=== PATIENT | female | born 2000 | race Hispanic/Latino ===

== ENCOUNTER 2023-06-03 11:32 | Inpatient (IN) | payer MEDICAID, OTHER ==
[2023-06-02 13:21] LABS: Hematocrit 36.6 % (34.9-44.5); Hemoglobin 12.6 g/dL (12.0-15.5); Platelet Count 155 10x3/uL (150-450)
[2023-06-02 15:45] LABS: HBSAg Index 0.25 S/CO (0-0.99); HIV (1/2) Antibody/Antigen Non-Reactive (NonReactive); HIV 1/2 INDEX 0.12 S/CO (<1.00); Hep B Surf Ag Non-Reactive S/CO (NonReactive)
[2023-06-02 15:48] LABS: Syphilis Antibody Nonreactive (Nonreactive); Syphilis Antibody Index 0.04 S/CO (<1.00 Non-Reactive)
[2023-06-03] MEDS: Lactated Ringer's 1,000 ML IV SCH (12:00)
[2023-06-03 12:47] VITALS: BMI 25.0
[2023-06-03] MEDS ORDERED: Methylergonovine 0.2 MG/ML VIAL IM PRN (12:57)
[2023-06-03] MEDS ORDERED: Diphenoxylate HCl/Atropine Tablet PO PRN (12:57)
[2023-06-03] MEDS ORDERED: Carboprost 250 MCG/ML AMP IM PRN (12:57)
[2023-06-03] MEDS ORDERED: Misoprostol 200 MCG TAB PR PRN (12:57)
[2023-06-03] MEDS ORDERED: Oxytocin 30 units/NS 500 ML 500 ML IV SCH (12:57)
[2023-06-03] MEDS ORDERED: Tranexamic Acid 1,000 MG/10 ML VIAL IVP PRN (12:57)
[2023-06-03] MEDS ORDERED: Bicitra 30 ML UDCUP PO PRN (12:57)
[2023-06-03] MEDS ORDERED: hydrALAZINE 20 MG/ML VIAL SLOW IVP PRN ×2 (12:57→16:11)
[2023-06-03] MEDS ORDERED: Ondansetron PF 4 MG/2 ML Vial IVP PRN ×3 (12:57→13:10)
[2023-06-03] MEDS ORDERED: Promethazine HCl 25 MG/ML VIAL IM PRN ×3 (12:57→16:11)
[2023-06-03] MEDS ORDERED: Promethazine HCl 25 MG SUPP PR PRN (13:10)
[2023-06-03] MEDS ORDERED: Meperidine HCl/PF 25 MG (1 mL) VIAL SLOW IVP PRN (13:10)
[2023-06-03] MEDS ORDERED: Moisturizing Cream (Eucerin) 113 GM JAR TOP PRN (13:10)
[2023-06-03] MEDS ORDERED: Ketorolac Tromethamine 30 MG (1 mL) VIAL IVP PRN (13:10)
[2023-06-03] MEDS ORDERED: diphenhydrAMINE 50 MG/ML VIAL IVP PRN (13:10)
[2023-06-03] MEDS ORDERED: fentaNYL 50 mcg/mL 1 mL Vial SLOW IVP PRN (13:10)
[2023-06-03] MEDS ORDERED: Naloxone HCl 0.4 mg/ml Vial IV PRN (13:10)
[2023-06-03] MEDS ORDERED: Naloxone HCl 0.4 mg/ml Vial IVP PRN ×2 (13:10)
[2023-06-03] MEDS: Famotidine/PF 20 mg/2ml Vial SLOW IVP PRN (13:13)
[2023-06-03] MEDS ORDERED: Ketorolac Tromethamine 30 MG (1 mL) VIAL IVP SCH (13:15)
[2023-06-03] MEDS ORDERED: Communication Order-Pharmacy FS SCH (13:15)
[2023-06-03] MEDS: CEFAZOLIN 2 GM VIAL ONE (13:30)
[2023-06-03] MEDS ORDERED: Lanolin Ointment 7 GM TUBE TOP PRN (16:11)
[2023-06-03] MEDS ORDERED: Bisacodyl 10 MG SUPP PR PRN (16:11)
[2023-06-03] MEDS ORDERED: Boostrix 0.5 ML (Tdap) VIAL (>/=7 yrs of age) IM ONE (16:11)
[2023-06-03] MEDS ORDERED: Meperidine HCl/PF 25 MG (1 mL) VIAL IM PRN (16:11)
[2023-06-03] MEDS: Ketorolac Tromethamine 30 MG (1 mL) VIAL IVP SCH (20:57)
[2023-06-03] MEDS: Docusate 100 MG CAP PO SCH (20:57)
[2023-06-03] MEDS: diphenhydrAMINE 25 MG CAP PO PRN (22:48)
[2023-06-04] MEDS ORDERED: Meperidine HCl/PF 25 MG (1 mL) VIAL IM PRN (01:15)
[2023-06-04] MEDS: Sodium Chloride 0.9% 100 ML ONE (04:12)
[2023-06-04] MEDS: CEFAZOLIN 2 GM in Sodium Chloride 0.9% 100 ML IVPB SCH (04:12)
[2023-06-04] MEDS: CEFAZOLIN 2 GM VIAL ONE (04:12)
[2023-06-04] MEDS: Morphine PF 10 MG/10 ML VIAL ONE (04:13)
[2023-06-04] MEDS: Ketorolac Tromethamine 30 MG (1 mL) VIAL ONE (04:13)
[2023-06-04] MEDS: Dexamethasone 4 mg/ml Vial ONE ×2 (04:13→04:14)
[2023-06-04] MEDS: Oxytocin 10 UNITS/ML VIAL ONE (04:13)
[2023-06-04] MEDS: PHENYLEPHRINE-NS 100 MCG/ML 10 ML SYRINGE ONE (04:13)
[2023-06-04] MEDS: Ondansetron PF 4 MG/2 ML Vial ONE ×2 (04:13→04:14)
[2023-06-04] MEDS: diphenhydrAMINE 50 MG/ML VIAL ONE (04:14)
[2023-06-04] MEDS: Ferrous Sulfate 325 MG TAB PO SCH (04:14)
[2023-06-04 04:17] LABS: Hematocrit 34.6 % (34.9-44.5); Hemoglobin 11.2 g/dL (12.0-15.5); Mean Corpuscular HGB CONC 32.4 g/dL (32.0-36.0); Mean Corpuscular Hemoglobin 27.2 pg (27.0-33.0); Mean Platelet Volume 12.9 fl (7.4-10.4); Platelet Count 158 10x3/uL (150-450); RBC Distribution Width 14.7 % (11.5-14.5); Red Blood Cell (RBC) Count 4.12 10x6/uL (3.90-5.03); White Blood Cell (WBC) Count 10.8 10x3/uL (3.5-10.5)
[2023-06-04] MEDS: Prenatal Vitamin 1 TAB PO SCH (08:03)
[2023-06-04] MEDS: HYDROcodone/Acetaminophen 5/325 mg Tablet PO PRN (10:52)
[2023-06-04] MEDS: Simethicone Chewable 80 MG TAB PO PRN (18:41)
[2023-06-04] MEDS: Ibuprofen 800 MG TAB PO SCH (20:29)
[2023-06-05] MEDS: Ondansetron PF 4 MG/2 ML Vial IVP PRN (10:17)
[2023-06-05] MEDS: HYDROcodone/Acetaminophen 5/325 mg Tablet PO PRN (14:38)
[2023-06-06 09:44] VITALS: BP 103/57; TEMP 97.8
== END 2023-06-06 14:40 | disposition home or self-care (01) | DRG 788 ==
LOC: CSHLD 11:32 → CSHPP 17:39
PROVIDERS: ADMIT Family Medicine; ATTEND Family Medicine
PROC: 10D00Z1 Extraction of Products of Conception, Low, Open Approach (ICD-10-PCS; principal; 2023-06-03)
PROC: 3E0P05Z Introduction of Adhesion Barrier into Female Reproductive, Open Approach (ICD-10-PCS; 2023-06-03)
PROC: 3E0234Z Introduction of Serum, Toxoid and Vaccine into Muscle, Percutaneous Approach (ICD-10-PCS; 2023-06-04)
DX: O36.63X0 Maternal care for excessive fetal growth, third trimester, not applicable or unspecified (principal); Z3A.39 39 weeks gestation of pregnancy; Z37.0 Single live birth; O77.0 Labor and delivery complicated by meconium in amniotic fluid; O66.0 Obstructed labor due to shoulder dystocia; Z23 Encounter for immunization
CPT/HCPCS: 36415; 51702; 85014; 85018; 85027; 85049; 85461; 86780; 86850; 86900; 86901; 87340; 87389; 90384; 96372; J1100; J1200; J1885; J2274; J2405; J2590; J7120; S0028